=== PATIENT | female | born 2000 | race Two or more races ===

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

== ENCOUNTER 2024-10-13 01:29 | Emergency (ER) | payer OTHER ==
[~2024-10-13] VITALS: Ht 170.2 cm; Wt 82.1 kg
[2024-10-13] MEDS ORDERED: KETOROLAC TROMETHAMINE 30 MG VIAL IV STA (02:24)
[2024-10-13] MEDS ORDERED: KETOROLAC TROMETHAMINE 30 MG VIAL ONE (02:25)
[2024-10-13] MEDS ORDERED: TRAMADOL HCL 50 MG TABLET PO STA (02:25)
[2024-10-13 02:44] LABS: BASO % 0.3 % (0.1-1.2); EOS # 0.06 (0.04-0.54); EOS % 0.7 % (0.7-7.0); HEMATOCRIT 39.8 % (40.1-51.0); HEMOGLOBIN 13.7 g/dL (13.7-17.5); LYMPH % 26.3 % (19.3-53.1); MEAN CORPUSCULAR HEMOGLOBIN 28.7 pg (25.6-32.2); MONO # 0.68 (0.24-0.82); MONO % 7.8 % (4.7-12.5); NEUT # 5.66 (1.56-6.13); NEUT % 64.6 % (34.0-71.1); PLATELET COUNT 204 K/uL (163-369); RED BLOOD COUNT 4.77 M/uL (4.63-6.08); RED CELL DISTRIBUTION WIDTH 12.9 % (11.6-14.4)
[2024-10-13 02:54] LABS: PH,URINE 5.5 (5.0-8.0); URINE APPEARANCE Clear; URINE BILIRRUBIN Negative (NEGATIVE); URINE BLOOD Negative; URINE COLOR Yellow; URINE GLUCOSE Negative (NEGATIVE); URINE KETONE Negative (NEGATIVE); URINE LEUKOCYTE Negative; URINE NITRATE Negative; URINE PROTEIN Negative (NEGATIVE); URINE UROBILINOGEN 0.2 E.U./dl
[2024-10-13 02:57] LABS: URINE BACTERIA 8.5 uL (0.0-1933); URINE EPITHELIAL CELLS 1.5 uL (0.0-38.8); URINE WBC 16.7 uL (0.0-23.2)
[2024-10-13 03:00] LABS: URINE CAST 0.58 uL (0.0-1.40); URINE RBC 1.6 uL (0.0-20.8)
== END 2024-10-13 04:24 | disposition home or self-care (01) ==
LOC: ER 01:29 → EDBD 01:51 → ER 01:51 → EDSEX 01:51 → ER 04:24
DX: N45.1 Epididymitis (principal)